=== PATIENT | female | born 1995 | race Two or more races ===

== ENCOUNTER 2017-01-15 10:56 | Emergency (ER) | payer OTHER ==
[2017-01-15 11:17] VITALS: BP 104/51; PULSE 71; TEMP 98.1; BMI 26.1
[2017-01-15 12:04] LABS: URINE APPEARANCE CLOUDY; URINE BILIRUBIN NEGATIVE (NEGATIVE); URINE COLOR YELLOW; URINE GLUCOSE (UA) NEGATIVE (NEGATIVE); URINE KETONE NEGATIVE (NEGATIVE); URINE NITRITE NEGATIVE (NEGATIVE); URINE UROBILINOGEN NEGATIVE E.U./dl (0.2-1.0)
[2017-01-15 12:13] LABS: URINE BLOOD 1+ (NEGATIVE); URINE LEUK ESTERASE 3+ (NEGATIVE); URINE PROTEIN 1+ (NEGATIVE)
--- NOTE | 2017-01-15 12:13 | PDOC ---
History of Present Illness - General Chief Complaint: Urinary Problem Stated Complaint: ABD PAIN Time Seen by Provider: 01/15/17 12:12 - History of Present Illness Initial Comments: 01/15/17 18:40 not seen by Patt ESQUIVEL Past History - Past Medical History Allergies/Adverse Reactions: Allergies Allergy/AdvReac Type Severity Reaction Status Date / Time No Known Allergies Allergy Verified 01/15/17 11:17 Home Medications: Ambulatory Orders Nitrofurantoin Macrocrystal [Macrodantin -] 100 mg PO BID #14 capsule 01/15/17 Phenazopyridine HCl [Pyridium -] 200 mg PO PC #10 tablet 01/15/17 Suicide Attempt (Hx): No Other medical history: PT DENIES MEDICAL HX - Immunization History Immunization Up to Date: Yes - Psycho/Social/Smoking Cessation Hx Anxiety: No Suicidal Ideation: No Smoking History: Never smoked Hx Alcohol Use: No Drug/Substance Use Hx: No *Physical Exam - Vital Signs Last Vital Signs Temp Pulse Resp BP Pulse Ox 98.1 F 71 18 104/51 95 01/15/17 11:15 01/15/17 11:15 01/15/17 11:15 01/15/17 11:15 01/15/17 11:15 *DC/Admit/Observation/Transfer Diagnosis at time of Disposition: UTI (urinary tract infection) - Discharge Dispostion Disposition: HOME Condition at time of disposition: Stable - Prescriptions Prescriptions: Nitrofurantoin Macrocrystal [Macrodantin -] 100 mg PO BID #14 capsule Phenazopyridine HCl [Pyridium -] 200 mg PO PC #10 tablet - Referrals Referrals: Shyla Davidson [Primary Care Provider] - - Patient Instructions Printed Discharge Instructions: DI for Urinary Tract Infection (UTI) Additional Instructions: Rest, drink lots of fluids: Teas, water, soups Avoid contact with others until fevers and symptoms resolved Lots of handwashing and good hygiene Continue [id number] medications for symptomatic relief Tylenol or Motrin for fever and pain Continue all of antibiotics until completed Followup with private physician in one week for repeat urinalysis/reevaluation Return to emergency department for worsened symptoms, fevers, dehydration Macrobid 100 mg twice a day for 7 days May use Pyridium for pain after each painful urination, up to 4 times a day, understanding will turn urine orange - Post Discharge Activity Work/School Note: Back to Work
[2017-01-15 12:19] LABS: URINE MUCUS RARE; URINE RBC 21 /hpf (0-3); URINE WBC 1393 /hpf (3-5)
[2017-01-15] MEDS ORDERED: NITROFURANTOIN MACROCRYSTAL 50 MG CAPSULE (FP) PO SCH (12:30)
[2017-01-15] MEDS ORDERED: NITROFURANTOIN MACROCRYSTAL 50 MG CAPSULE (FP) ONE (12:32)
--- NOTE | 2017-01-15 12:36 | PDOC ---
History of Present Illness - General Chief Complaint: Urinary Problem Stated Complaint: ABD PAIN Time Seen by Provider: 01/15/17 12:12 History Source: Patient Exam Limitations: No Limitations - History of Present Illness Travel History: No Initial Comments: 01/15/17 12:31 Patient is here with complaints of pain, burning, and some scant bleeding this morning with her urine. Has had a urinary tract infection the past and states feels this is same. Uncertain of status. No fever, no bowel changes 01/15/17 12:32 Timing/Duration: reports: getting worse Quality: reports: mild, moderate, sharpness Abdominal Pain Onset Location: reports: suprapubic Pain Radiation: reports: no radiation Past History - Travel Traveled outside of the country in the last 30 days: No Close contact w/someone who was outside of country & ill: No - Past Medical History Allergies/Adverse Reactions: Allergies Allergy/AdvReac Type Severity Reaction Status Date / Time No Known Allergies Allergy Verified 01/15/17 11:17 Home Medications: Ambulatory Orders Nitrofurantoin Macrocrystal [Macrodantin -] 100 mg PO BID #14 capsule 01/15/17 Phenazopyridine HCl [Pyridium -] 200 mg PO PC #10 tablet 01/15/17 Suicide Attempt (Hx): No Other medical history: PT DENIES MEDICAL HX - Immunization History Immunization Up to Date: Yes - Psycho/Social/Smoking Cessation Hx Anxiety: No Suicidal Ideation: No Smoking History: Never smoked Hx Alcohol Use: No Drug/Substance Use Hx: No Review of Systems - Review of Systems Able to Perform ROS?: Yes Is the patient limited Guatemalan proficient: Yes Constitutional: Yes: Symptoms Reported, See HPI, Malaise. No: Fever HEENTM: Yes: See HPI. No: Symptoms Reported Musculoskeletal: Yes: Symptoms Reported Integumentary: Yes: Symptoms Reported All Other Systems: Reviewed and Negative *Physical Exam - Vital Signs Last Vital Signs Temp Pulse Resp BP Pulse Ox 98.1 F 71 18 104/51 95 01/15/17 11:15 01/15/17 11:15 01/15/17 11:15 01/15/17 11:15 01/15/17 11:15 - Physical Exam General Appearance: Yes: Nourished, Appropriately Dressed. No: Apparent Distress HEENT: positive: LISA, TMs Normal, Pharynx Normal Neck: positive: Supple. negative: Lymphadenopathy (R), Lymphadenopathy (L) Respiratory/Chest: positive: Normal Breath Sounds Gastrointestinal/Abdominal: positive: Tender (suprapubic), Soft. negative: Normal Bowel Sounds Extremity: positive: Normal Capillary Refill, Normal Inspection, Normal Range of Motion Integumentary: positive: Normal Color, Dry, Warm Neurologic: positive: windows server architect II-XII NML intact, Fully Oriented, Alert, Normal Mood/ Affect, Normal Response, Motor Strength 02/13 ED Treatment Course - ADDITIONAL ORDERS Additional order review: Laboratory Results 01/15/17 11:55 Urine Color Yellow Urine Appearance Cloudy Urine pH 5.0 Ur Specific [place] 1.019 Urine Protein 1+ H Urine Glucose (UA) Negative Urine Ketones Negative Urine Blood 1+ H Urine Nitrite Negative Urine Bilirubin Negative Urine Urobilinogen Negative Ur Leukocyte Esterase 3+ H D Urine RBC 21 Urine WBC 1393 Ur Epithelial Cells Rare Urine Mucus Rare Urine HCG, Qual Negative Progress Note - Progress Note Progress Note: Urinary tract infection, will treat with Macrobid and pyridium *DC/Admit/Observation/Transfer Diagnosis at time of Disposition: UTI (urinary tract infection) Qualifiers: Urinary tract infection type: acute cystitis Hematuria presence: with hematuria Qualified Code(s): N30.01 - Acute cystitis with hematuria - Discharge Dispostion Disposition: HOME Condition at time of disposition: Stable Admit: No - Prescriptions Prescriptions: Nitrofurantoin Macrocrystal [Macrodantin -] 100 mg PO BID #14 capsule Phenazopyridine HCl [Pyridium -] 200 mg PO PC #10 tablet - Referrals Referrals: Shyla Davidson [Primary Care Provider] - - Patient Instructions Printed Discharge Instructions: DI for Urinary Tract Infection (UTI) Additional Instructions: Rest, drink lots of fluids: Teas, water, soups Avoid contact with others until fevers and symptoms resolved Lots of handwashing and good hygiene Continue [id number] medications for symptomatic relief Tylenol or Motrin for fever and pain Continue all of antibiotics until completed Followup with private physician in one week for repeat urinalysis/reevaluation Return to emergency department for worsened symptoms, fevers, dehydration Macrobid 100 mg twice a day for 7 days May use Pyridium for pain after each painful urination, up to 4 times a day, understanding will turn urine orange - Post Discharge Activity Work/School Note: Back to Work
--- NOTE | 2017-01-15 12:47 | PDOC ---
History of Present Illness - General Chief Complaint: Urinary Problem Stated Complaint: ABD PAIN Time Seen by Provider: 01/15/17 12:12 History Source: Patient Exam Limitations: No Limitations - History of Present Illness Travel History: Yes Initial Comments: 01/15/17 12:30 co pain and dysuria x 2 days. No fevers/ no bowel changes. Timing/Duration: reports: constant Abdominal Pain Onset Location: reports: suprapubic Pain Radiation: reports: no radiation Activities at Onset: reports: none Past History - Travel Traveled outside of the country in the last 30 days: No Close contact w/someone who was outside of country & ill: No - Past Medical History Allergies/Adverse Reactions: Allergies Allergy/AdvReac Type Severity Reaction Status Date / Time No Known Allergies Allergy Verified 01/15/17 11:17 Home Medications: Ambulatory Orders Nitrofurantoin Macrocrystal [Macrodantin -] 100 mg PO BID #14 capsule 01/15/17 Phenazopyridine HCl [Pyridium -] 200 mg PO PC #10 tablet 01/15/17 Suicide Attempt (Hx): No Other medical history: PT DENIES MEDICAL HX - Immunization History Immunization Up to Date: Yes - Psycho/Social/Smoking Cessation Hx Anxiety: No Suicidal Ideation: No Smoking History: Never smoked Hx Alcohol Use: No Drug/Substance Use Hx: No Review of Systems - Review of Systems Able to Perform ROS?: Yes Is the patient limited Belarusian proficient: Yes Constitutional: Yes: Symptoms Reported, See HPI, Malaise. No: Fever HEENTM: Yes: See HPI. No: Symptoms Reported Musculoskeletal: No: Symptoms Reported All Other Systems: Reviewed and Negative *Physical Exam - Vital Signs Last Vital Signs Temp Pulse Resp BP Pulse Ox 98.1 F 71 18 104/51 95 01/15/17 11:15 01/15/17 11:15 01/15/17 11:15 01/15/17 11:15 01/15/17 11:15 - Physical Exam General Appearance: Yes: Nourished, Appropriately Dressed, Apparent Distress, Mild Distress HEENT: positive: LISA, TMs Normal, Pharynx Normal Neck: positive: Supple. negative: Lymphadenopathy (R), Lymphadenopathy (L) Respiratory/Chest: positive: Lungs Clear Gastrointestinal/Abdominal: positive: Soft, Tenderness Musculoskeletal: negative: CVA Tenderness Integumentary: positive: Normal Color Neurologic: positive: lithoplate maker II-XII NML intact, Fully Oriented, Alert, Normal Mood/ Affect, Normal Response, Motor Strength / ED Treatment Course - ADDITIONAL ORDERS Additional order review: Laboratory Results 01/15/17 11:55 Urine Color Yellow Urine Appearance Cloudy Urine pH 5.0 Ur Specific [place] 1.019 Urine Protein 1+ H Urine Glucose (UA) Negative Urine Ketones Negative Urine Blood 1+ H Urine Nitrite Negative Urine Bilirubin Negative Urine Urobilinogen Negative Ur Leukocyte Esterase 3+ H D Urine RBC 21 Urine WBC 1393 Ur Epithelial Cells Rare Urine Mucus Rare Urine HCG, Qual Negative Progress Note - Progress Note Progress Note: Urinary tract infection, will treat with Pyridium and Macrobid *DC/Admit/Observation/Transfer Diagnosis at time of Disposition: UTI (urinary tract infection) Qualifiers: Urinary tract infection type: acute cystitis Hematuria presence: with hematuria Qualified Code(s): N30.01 - Acute cystitis with hematuria - Discharge Dispostion Disposition: HOME Condition at time of disposition: Stable - Prescriptions Prescriptions: Nitrofurantoin Macrocrystal [Macrodantin -] 100 mg PO BID #14 capsule Phenazopyridine HCl [Pyridium -] 200 mg PO PC #10 tablet - Referrals Referrals: Shyla Davidson [Primary Care Provider] - - Patient Instructions Printed Discharge Instructions: DI for Urinary Tract Infection (UTI) Additional Instructions: Rest, drink lots of fluids: Teas, water, soups Avoid contact with others until fevers and symptoms resolved Lots of handwashing and good hygiene Continue [id number]-[id number]-[id number] medications for symptomatic relief Tylenol or Motrin for fever and pain Continue all of antibiotics until completed Followup with private physician in one week for repeat urinalysis/reevaluation Return to emergency department for worsened symptoms, fevers, dehydration Macrobid 100 mg twice a day for 7 days May use Pyridium for pain after each painful urination, up to 4 times a day, understanding will turn urine orange - Post Discharge Activity Work/School Note: Back to Work
== END 2017-01-15 12:41 | disposition home or self-care (01) ==
LOC: JERFT 10:56 → JER 10:56 → JERFT 12:41
DX: N30.01 Acute cystitis with hematuria (principal)
CPT/HCPCS: 36415; 81003; 81015; 84703; 87086; 87186; 87491; 87591; 99281-25

== ENCOUNTER 2017-06-12 18:02 | Emergency (ER) | payer OTHER ==
[2017-06-12 18:06] VITALS: BP 135/71; PULSE 65; TEMP 98.1; BMI 26.1
--- NOTE | 2017-06-12 18:17 | PDOC ---
History of Present Illness - General Chief Complaint: Urinary Problem Stated Complaint: Wants to R/O UTI Time Seen by Provider: 06/12/17 18:15 Past History - Past Medical History Allergies/Adverse Reactions: Allergies Allergy/AdvReac Type Severity Reaction Status Date / Time No Known Allergies Allergy Verified 06/12/17 18:06 Home Medications: Ambulatory Orders Sulfamethoxazole/Trimethoprim [Bactrim Ds -] 1 tab PO BID #14 tablet 06/12/17 Suicide Attempt (Hx): No Other medical history: denies - Immunization History Immunization Up to Date: Yes - Psycho/Social/Smoking Cessation Hx Anxiety: No Suicidal Ideation: No Smoking History: Never smoked Information on smoking cessation initiated: No Hx Alcohol Use: No Drug/Substance Use Hx: No Substance Use Type: None *Physical Exam - Vital Signs Last Vital Signs Temp Pulse Resp BP Pulse Ox 98.1 F 65 17 135/71 100 06/12/17 18:04 06/12/17 18:04 06/12/17 18:04 06/12/17 18:04 06/12/17 18:04 *DC/Admit/Observation/Transfer Diagnosis at time of Disposition: UTI (urinary tract infection) Qualifiers: Urinary tract infection type: acute cystitis Hematuria presence: with hematuria Qualified Code(s): N30.01 - Acute cystitis with hematuria - Discharge Dispostion Disposition: HOME Condition at time of disposition: Good Admit: No - Prescriptions Prescriptions: Sulfamethoxazole/Trimethoprim [Bactrim Ds -] 1 tab PO BID #14 tablet - Referrals Referrals: Shyla Davidson [Primary Care Provider] - Ksenia Segundo MD [Staff Physician] - - Patient Instructions Printed Discharge Instructions: DI for Urinary Tract Infection (UTI) Additional Instructions: You have a urinary tract infection. You were prescribed antibiotics. Take as prescribed and finish the antibiotics even if you feel better. Drink plenty of fluids. You may take ibuprofen as needed for pain not to exceed 3,000mg a day. Follow up with your primary care doctor within the week. Return to the ED if you have worsening fevers, chills, nausea, vomiting, back pain, or any changes in your symptoms
[2017-06-12 18:33] LABS: URINE APPEARANCE CLEAR; URINE BILIRUBIN NEGATIVE (NEGATIVE); URINE BLOOD 3+ (NEGATIVE); URINE COLOR LT. YELLOW; URINE GLUCOSE (UA) NEGATIVE (NEGATIVE); URINE KETONE TRACE (NEGATIVE); URINE NITRITE NEGATIVE (NEGATIVE); URINE PROTEIN TRACE (NEGATIVE); URINE UROBILINOGEN 0.2 mg/dL (0.2-1.0)
[2017-06-12 18:35] LABS: URINE LEUK ESTERASE 1+ (NEGATIVE)
[2017-06-12 18:40] LABS: URINE BACTERIA RARE /hpf (NONE SEEN); URINE HYALINE CAST 3 /lpf; URINE MUCUS RARE; URINE RBC 84 /hpf (0-3); URINE WBC 134 /hpf (3-5)
[2017-06-12] MEDS ORDERED: IBUPROFEN 600 MG TABLET (FP) PO ONE ×2 (18:55→19:01)
== END 2017-06-12 19:04 | disposition home or self-care (01) ==
LOC: JERFT 18:02
DX: N30.01 Acute cystitis with hematuria (principal)
CPT/HCPCS: 81003; 81015; 84703; 87086; 99281-25

== ENCOUNTER 2018-12-01 22:01 | Emergency (ER) | payer OTHER ==
[2018-12-01 22:20] VITALS: BMI 25.7
--- NOTE | 2018-12-01 22:44 | PDOC ---
History of Present Illness - General Chief Complaint: Vomiting Blood Stated Complaint: VOMITING BLOOD Time Seen by Provider: 12/01/18 22:24 History Source: Patient Exam Limitations: No Limitations - History of Present Illness Initial Comments: 23 yo F w a pmh of scoliosis presents to the ER stating she experienced 4 episodes of bloody vomitus after she was drinking a significant amount of vodka. She reports that she was drinking earlier today, then felt nauseous and started vomiting blood. She also admits to epigastric and LUQ abdominal pain which radiates to her back. She says that she drinks pretty frequently but she has never vomited blood in the past. She states that after she vomited she looked into the toilet and it was full of blood. She denies recent fevers, chills, infections, headache, blurry vision, neck pain , chest pain, SOB, difficulty breathing, dysuria, frequency, urgency, or vertigo. LMP: 1 week ago PCP: Ruba Merlos PSH: None reported Allergies: NKA, NKDA Social Hx: Drinks 3 times a week, smokes 3 times a week ~3 cig/week, Denies IVDU or other substances. Past History - Past Medical History Allergies/Adverse Reactions: Allergies Allergy/AdvReac Type Severity Reaction Status Date / Time No Known Allergies Allergy Verified 12/01/18 22:22 Home Medications: Ambulatory Orders NK [No Known Home Medication] 12/01/18 CVA: No COPD: No CHF: No - Surgical History Appendectomy: No Cardiac Surgery: No Gastric Stapling: No GI Surgery: No Lung Surgery: No - Immunization History Immunization Up to Date: Yes - Suicide/Smoking/Psychosocial Hx Smoking History: Current some day smoker Have you smoked in the past 12 months: Yes Number of Cigarettes Smoked Daily: 2 Information on smoking cessation initiated: Yes Hx Alcohol Use: Yes (Three times/week) Drug/Substance Use Hx: No Substance Use Type: None Review of Systems - Review of Systems Able to Perform ROS?: Yes Comments:: CONSTITUTIONAL: Absent: fever, no chills, no fatigue EYES: Absent: visual changes ENT: Absent: ear pain, no sore throat CARDIOVASCULAR: Absent: chest pain, no palpitations RESPIRATORY: Absent: cough, no SOB GI: Present: Abdominal pain, nausea, vomiting Absent: no constipation, no diarrhea GENITOURINARY: Absent: dysuria, no frequency, no hematuria MUSKULOSKELETAL: Present: Back pain Absent: no arthralgia, no myalgia SKIN: Absent: rash NEURO: Absent: headache *Physical Exam - Vital Signs Last Vital Signs Temp Pulse Resp BP Pulse Ox 98.6 F 108 H 20 127/77 98 12/01/18 22:18 12/01/18 22:18 12/01/18 22:18 12/01/18 22:18 12/01/18 22:18 - Physical Exam Comments: GENERAL: Well-appearing, well-nourished. No apparent distress. HEENT: Normocephalic, atraumatic. PERRL, EOM intact. CARDIOVASCULAR: Tachycardic rate. Normal S1, S2. Regular rhythm. PULMONARY: No evidence of respiratory distress. Lungs clear to auscultation bilaterally. No wheezing, rales or rhonchi. ABDOMEN: There is epigastric TTP. The abdomen is still soft, non-distended, and there are normal BS. EXTREMITIES: Normal ROM in all four extremities. No gross deformities. SKIN: Warm, dry. No rash NEUROLOGICAL: No focal neurological deficits. Moderate Sedation - Procedure Monitoring Vital Signs: Procedure Monitoring Vital Signs Temperature 98.6 F 12/01/18 22:18 Pulse Rate 108 H 12/01/18 22:18 Respiratory Rate 20 12/01/18 22:18 Blood Pressure 127/77 12/01/18 22:18 O2 Sat by Pulse Oximetry (%) 98 12/01/18 22:18 ED Treatment Course - LABORATORY CBC & Chemistry Diagram: 12/01/18 22:43 12/01/18 22:43 Medical Decision Making - Medical Decision Making 23 yo F w a pmh of scoliosis presents to the ER stating she experienced 4 episodes of bloody vomitus after she was drinking a significant amount of vodka. She reports that she was drinking earlier today, then felt nauseous and started vomiting blood. She also admits to epigastric and LUQ abdominal pain which radiates to her back. She says that she drinks pretty frequently but she has never vomited blood in the past. She states that after she vomited she looked into the toilet and it was full of blood. VS: Tachycardic DDx IBNLT: Talia Escobar vc boerhave, pneumomediastinum, pancreatitis, food poisoning, gastroenteritis, cholecystitis, anemia, alcohol related side effects Plan: Labs, Urine, CXR, EKG, Tox, Hcg, IV hydration, zofran, pepcid, re-assess. Labs unremarkable. Lipase WNL, HCG neg. CXR clean Patient feels much better after zofran and pepcid and is no longer experiencing abdominal pain. - She likely experienced an episode of gastritis secondary to alcohol abuse Will DC with PCP fu and return precautions. *DC/Admit/Observation/Transfer Diagnosis at time of Disposition: Abdominal pain, Alcohol abuse - Discharge Dispostion Disposition: HOME Condition at time of disposition: Improved Decision to Admit order: No - Referrals Referrals: Ruba Merlos MD [Primary Care Provider] - Francisco J Long MD [Staff Physician] - - Patient Instructions Printed Discharge Instructions: DI for Alcohol Abuse, DI for Abdominal Pain- Adult Additional Instructions: You came into the ER with abdominal pain and vomiting. We gave you some meds and IV hydration and you felt much better. It is important to call a stomach doctor - court deputy and schedule an appointment in the next 3 to 5 days. We are attaching a number for you to call. Come back to the ER if your pain worsens, you vomit blood, fell lightheaded, have extreme pain, or have any other new or worsening concerns. Thank you for coming to the [facility] ER. We hope you feel better soon! Print Language: SENEGALESE - Post Discharge Activity
[2018-12-01] MEDS ORDERED: SODIUM CHLORIDE 0.9% 500 ML INFUS.BAG IV ONE (22:46)
[2018-12-01] MEDS ORDERED: ONDANSETRON 4 MG/2 ML VIAL IVPUSH ONE (22:46)
[2018-12-01] MEDS ORDERED: FAMOTIDINE 20 MG/50 ML IVPB 20 MG/50 ML MG IVPB ONE ×2 (22:46→23:22)
[2018-12-01 22:58] LABS: BASO % 0.6 % (0-2.0); EOS % 0.9 % (0-4.5); HEMOGLOBIN 15.5 GM/dL (10.7-15.3); LYMPH % 41.9 % (8-40); MCH 32.4 pg (25.7-33.7); MCHC 35.3 g/dl (32.0-36.0); MEAN CELL VOLUME 91.8 fl (80-96); MEAN PLT VOLUME 8.8 fl (7.5-11.1); MONO % 4.6 % (3.8-10.2); PLATELET COUNT 323 K/MM3 (134-434); RDW 13.3 % (11.6-15.6); WHITE BLOOD COUNT 6.5 K/mm3 (4.0-10.0)
[2018-12-01 23:13] LABS: INR 0.99 (0.83-1.09); PROTHROMBIN TIME (PATIENT) 11.7 SEC (9.7-13.0)
[2018-12-01 23:16] LABS: ACTIVATED PTT 34.5 SECONDS (25.2-36.5)
[2018-12-01 23:19] LABS: LIPASE 262 U/L (73-393)
[2018-12-01] MEDS ORDERED: ONDANSETRON 4 MG/2 ML VIAL ONE (23:21)
[2018-12-01 23:40] LABS: ALBUMIN 4.6 g/dl (3.4-5.0); ALK PHOS 107 U/L (45-117); ANION GAP 7 MMOL/L (8-16); BLOOD UREA NITROGEN 12 mg/dL (7-18); CALCIUM 8.9 mg/dL (8.5-10.1); CHLORIDE 110 mmol/L (98-107); CO2 25 mmol/L (21-32); CREATININE 0.8 mg/dL (0.55-1.3); SGOT/AST 15 U/L (15-37); SODIUM 142 mmol/L (136-145); TOT PROT 8.7 g/dl (6.4-8.2)
[2018-12-01 23:41] LABS: BILIRUBIN,TOTAL 0.2 mg/dL (0.2-1); GLUCOSE,RANDOM 93 mg/dL (74-106); SGPT/ALT 32 U/L (13-61)
[2018-12-02 00:32] LABS: URINE APPEARANCE CLEAR; URINE BILIRUBIN NEGATIVE (<2.0 mg/dL); URINE COLOR STRAW; URINE GLUCOSE (UA) NEGATIVE (NEGATIVE); URINE KETONE NEGATIVE (NEGATIVE); URINE LEUK ESTERASE TRACE (NEGATIVE); URINE NITRITE NEGATIVE (NEGATIVE); URINE PROTEIN NEGATIVE (NEGATIVE); URINE UROBILINOGEN NEGATIVE mg/dL (0.2-1.0)
[2018-12-02 00:33] LABS: HCG,QUALITATIVE URINE Negative
[2018-12-02 00:46] LABS: EPI CELLS RARE /HPF (FEW); URINE MUCUS RARE
--- NOTE | 2018-12-02 00:51 | PDOC ---
Attending Attestation - Resident Resident Name: Isaac Lau - ED Attending Attestation I have performed the following: I have examined & evaluated the patient, The case was reviewed & discussed with the resident, I agree w/resident's findings & plan, Exceptions are as noted - HPI HPI: 12/02/18 00:46 23 yo F with no significant pmhx here with c/o n/v and hemetemesis. pt was drinking alcohol today. states she drinks 3 days a / week. tongiht have several episodes of blood tinged vomiting. no f/c does c/o epigastric abd pain. lmp was one week ago. not . denies other co ingestion. no h/o known pud. not taking any medication. no f/c not lightheaded. - Physicial Exam PE: 12/02/18 00:48 awake alert lungs clear bilaterally heart rrr no mrg abd soft nt nd. ext wwp. skin warm and dry. alert oriented x 3. - Medical Decision Making 12/02/18 00:49 differential pud, etoh gastritis efrain young, devorah. plan xray antiemetics, pepcid, ua ucg labs iv hydration. pt labs unremarkable feeling better. no emesis since medication. will dc home gi followup. cxr normal. no free air.
[2018-12-02 01:33] VITALS: BP 119/71; PULSE 82; TEMP 98.2
--- NOTE | 2018-12-02 11:54 | EKG ---
Test Reason : Blood Pressure : / mmHG Vent. Rate : 082 BPM Atrial Rate : 082 BPM P-R Int : 210 ms QRS Dur : 082 ms QT Int : 372 ms P-R-T Axes : 040 036 014 degrees QTc Int : 434 ms POOR DATA QUALITY, INTERPRETATION MAY BE ADVERSELY AFFECTED SINUS RHYTHM WITH 1ST DEGREE A-V BLOCK OTHERWISE NORMAL ECG NO PREVIOUS ECGS AVAILABLE Confirmed by ANABELLA GOLDSTEIN, EMELYN ([id number]) on 12/02/2018 11:53:37 AM Referred By: Confirmed By:EMELYN KYLE MD
== END 2018-12-02 01:30 | disposition home or self-care (01) ==
LOC: JER 22:01
PROC: 3E033GC Introduction of Other Therapeutic Substance into Peripheral Vein, Percutaneous Approach (ICD-10-PCS; principal; 2018-12-01)
PROC: 3E033GC Introduction of Other Therapeutic Substance into Peripheral Vein, Percutaneous Approach (ICD-10-PCS; 2018-12-01)
DX: R10.10 Upper abdominal pain, unspecified (principal); F10.10 Alcohol abuse, uncomplicated
CPT/HCPCS: 36415; 71046-TC-FY; 80053; 80307; 81003; 81015; 83690; 84703; 85025; 85044; 85610; 85730; 86850; 86900; 86901; 93005; 93010; 99282-25

== ENCOUNTER 2019-05-15 18:06 | Emergency (ER) | payer OTHER ==
[2019-05-15 18:11] VITALS: BP 114/68; PULSE 68; TEMP 98.4; BMI 29.6
--- NOTE | 2019-05-15 19:12 | PDOC ---
History of Present Illness - General Chief Complaint: Pain Stated Complaint: ABDOMINAL PAIN Time Seen by Provider: 05/15/19 19:00 History Source: Patient Exam Limitations: No Limitations - History of Present Illness Initial Comments: 05/15/19 19:03 Patient is a 23-year-old female with no past medical history c/o burning on urination since 4 days. Patient states pain is in the lower abd burning /10 with urination and radiates to the back. Took motrin prior to ED and now has no pain. Denies nausea, vomiting, fever, chills, back pain, vaginal discharge. Sexually active with one partner without condoms. LMP 05/08/19 has IUD. PMD: [facility] PMHX: as above PSOCHX: occ cig, occ etoh, neg drug ALL: NKDA GENERAL/CONSTITUTIONAL: No fever or chills. No weakness. No weight change. HEAD, EYES, EARS, NOSE AND THROAT: No change in vision. No ear pain or discharge. No sore throat. CARDIOVASCULAR: No chest pain or shortness of breath. RESPIRATORY: No cough, wheezing, or hemoptysis. GASTROINTESTINAL: No nausea, vomiting, diarrhea or constipation. No rectal bleeding. GENITOURINARY: (+)dysuria, frequency, or change in urination. MUSCULOSKELETAL: No joint or muscle swelling or pain. No neck or back pain. SKIN AND BREASTS: No rash or easy bruising. NEUROLOGIC: No headache, vertigo, loss of consciousness, or loss of sensation. PSYCHIATRIC: No depression or anxiety. ENDOCRINE: No increased thirst. No abnormal weight change. HEMATOLOGIC/LYMPHATIC: No anemia, easy bleeding, or history of blood clots. ALLERGIC/IMMUNOLOGIC: No hives or skin allergy. No latex allergy. GENERAL: The patient is awake, alert, and fully oriented, in mild distress. HEAD: Normal with no signs of trauma. EYES: Pupils equal, round and reactive to light, extraocular movements intact, sclera anicteric, conjunctiva clear. ENT: Ears normal, nares patent, oropharynx clear without exudates. Moist mucous membranes. NECK: Normal range of motion, supple without lymphadenopathy, JVD, or masses. LUNGS: Breath sounds equal, clear to auscultation bilaterally. No wheezes, and no crackles. HEART: Regular rate and rhythm, normal S1 and S2 without murmur, rub. ABDOMEN: Soft, (+) mild tenderness suprapubic, normoactive bowel sounds. No guarding, no rebound. No masses. EXTREMITIES: Normal range of motion, no edema. No clubbing or cyanosis. No cords, erythema, or tenderness. NEUROLOGICAL: Cranial nerves II through XII grossly intact. Normal speech, normal gait. PSYCH: Normal mood, normal affect. SKIN: Warm, Dry, normal turgor, no rashes or lesions noted. Past History - Past Medical History Allergies/Adverse Reactions: Allergies Allergy/AdvReac Type Severity Reaction Status Date / Time No Known Allergies Allergy Verified 05/15/19 18:10 Home Medications: Ambulatory Orders Cephalexin [Keflex] 500 mg PO BID #14 capsule 05/15/19 Phenazopyridine HCl [Pyridium] 100 mg PO TID #6 tablet 05/15/19 CVA: No COPD: No CHF: No - Surgical History Appendectomy: No Cardiac Surgery: No Gastric Stapling: No GI Surgery: No Lung Surgery: No - Immunization History Immunization Up to Date: Yes - Suicide/Smoking/Psychosocial Hx Smoking History: Never smoked Have you smoked in the past 12 months: Yes Number of Cigarettes Smoked Daily: 2 Hx Alcohol Use: Yes (Three times/week) Drug/Substance Use Hx: No Substance Use Type: None *Physical Exam - Vital Signs Last Vital Signs Temp Pulse Resp BP Pulse Ox 98.4 F 68 18 114/68 98 05/15/19 18:08 05/15/19 18:08 05/15/19 18:08 05/15/19 18:08 05/15/19 18:08 Medical Decision Making - Medical Decision Making 05/15/19 19:03 Patient is a 23-year-old female with no past medical history c/o burning on urination since 4 days. Patient states pain is in the lower abd burning 04/20 with urination and radiates to the back. Took motrin prior to ED and now has no pain. Denies nausea, vomiting, fever, chills, back pain, vaginal discharge. Sexually active with one partner without condoms. LMP 05/08/19 has IUD. Symptoms consistent with UTI UA, Urine culture, GC chlamydia. 05/15/19 20:37 Laboratory Tests 05/15/19 05/15/19 19:10 19:10 Urine Color Yellow Urine Appearance Clear Urine pH 5.5 Ur Specific Agar 1.004 L Urine Urobilinogen 0.2 Ur Leukocyte Esterase 1+ H Urine WBC (Auto) 37.5 Urine RBC (Auto) 1.8 U Epithel Cells (Auto) 7.4 Urine Bacteria (Auto) 42.0 Urine HCG, Qual Negative Keflex 500 mg by mouth given. pyridium 200mg po Urine culture pending, chlamydia pending I discussed the physical exam findings, ancillary test results and final diagnoses with the patient. I answered all of the patient's questions. The patient was satisfied with the care received and felt comfortable with the discharge plan and treatment plan. The Patient agrees to follow up with the primary care physician within 24-72 hours. *DC/Admit/Observation/Transfer Diagnosis at time of Disposition: UTI (urinary tract infection) Qualifiers: Urinary tract infection type: site unspecified Hematuria presence: without hematuria Qualified Code(s): N39.0 - Urinary tract infection, site not specified - Discharge Dispostion Disposition: HOME Condition at time of disposition: Stable - Prescriptions Prescriptions: Cephalexin [Keflex] 500 mg PO BID #14 capsule Phenazopyridine HCl [Pyridium] 100 mg PO TID #6 tablet - Referrals - Patient Instructions Printed Discharge Instructions: DI for Urinary Tract Infection (UTI) Additional Instructions: Your Discharge Instructions: You must call primary care physician within 24 hours to arrange follow-up. Return to the Emergency Department with any new, persistent or worsening symptoms, for fever, chills, SOB, dizziness or any other concerning changes that may occur. The antibiotics as prescribed. - Post Discharge Activity Forms/Work/School Notes: Back to Work
[2019-05-15 19:42] LABS: PH,URINE 5.5 (5.0-8.0); URINE APPEARANCE CLEAR; URINE BILIRUBIN NEGATIVE (NEGATIVE); URINE COLOR YELLOW; URINE GLUCOSE (UA) NEGATIVE (NEGATIVE); URINE KETONE NEGATIVE (NEGATIVE); URINE LEUK ESTERASE 1+ (NEGATIVE); URINE NITRITE NEGATIVE (NEGATIVE); URINE PROTEIN NEGATIVE (NEGATIVE); URINE UROBILINOGEN 0.2 mg/dL (0.2-1.0)
[2019-05-15 20:22] LABS: URINE RBC 1.8 /hpf (0-4); URINE WBC 37.5 /hpf (0-5)
[2019-05-15 20:23] LABS: EPI CELLS 7.4 /HPF (0-5/HPF)
[2019-05-15] MEDS ORDERED: CEPHALEXIN MONOHYDRATE 500 MG CAPSULE (UD) PO ONE (20:34)
[2019-05-15] MEDS ORDERED: PHENAZOPYRIDINE HCL 100 MG TABLET (FP) PO ONE (20:41)
[2019-05-15] MEDS ORDERED: PHENAZOPYRIDINE HCL 100 MG TABLET (FP) ONE (20:46)
[2019-05-15] MEDS ORDERED: CEPHALEXIN MONOHYDRATE 500 MG CAPSULE (UD) ONE (20:46)
== END 2019-05-15 20:51 | disposition home or self-care (01) ==
LOC: JER 18:06
DX: N39.0 Urinary tract infection, site not specified (principal)
CPT/HCPCS: 36415; 81003; 84703; 87086; 87491; 87591; 99281-25

== ENCOUNTER 2021-07-23 17:17 | Emergency (ER) | payer OTHER ==
[2021-07-23 17:55] VITALS: BP 137/75; PULSE 97; TEMP 98.1; BMI 29.6
[2021-07-23] MEDS ORDERED: IBUPROFEN 600 MG TABLET (FP) PO ONE ×2 (18:28→18:30)
[2021-07-23] MEDS ORDERED: PHENAZOPYRIDINE HCL 100 MG TABLET (FP) PO ONE (18:28)
[2021-07-23] MEDS ORDERED: PHENAZOPYRIDINE HCL 100 MG TABLET (FP) ONE (18:30)
[2021-07-23 18:55] LABS: EPI CELLS 32 /uL (0-25.1); HYALINE CASTS 2 /uL (0-3.1); URINE APPEARANCE TURBID; URINE BACTERIA 516 /uL (0-1359); URINE BILIRUBIN NEGATIVE (NEGATIVE); URINE COLOR YELLOW; URINE GLUCOSE (UA) NEGATIVE (NEGATIVE); URINE KETONE 1+ (NEGATIVE); URINE LEUK ESTERASE 3+ (NEGATIVE); URINE NITRITE NEGATIVE (NEGATIVE); URINE PROTEIN 2+ (NEGATIVE); URINE WBC 6509 /uL (0-25.8)
[2021-07-23] MEDS ORDERED: CEPHALEXIN MONOHYDRATE 500 MG CAPSULE (UD) PO ONE (19:01)
[2021-07-23] MEDS ORDERED: CEPHALEXIN MONOHYDRATE 500 MG CAPSULE (UD) ONE (19:02)
[2021-07-23 21:57] LABS: URINE RBC 528.8 /uL (0-23.9); YEAST NONE SEEN (NEGATIVE)
== END 2021-07-23 19:07 | disposition home or self-care (01) ==
LOC: JERFT 17:17 → JER 17:17 → JERFT 19:07
DX: N30.00 Acute cystitis without hematuria (principal)
CPT/HCPCS: 36415; 81003; 84703; 87077; 87086; 87491; 87591; 99284-25

== ENCOUNTER 2021-09-01 09:49 | Emergency (ER) | payer OTHER ==
[2021-09-01 10:04] VITALS: BP 120/75; PULSE 67; TEMP 97; BMI 29.4
[2021-09-01 10:46] LABS: EPI CELLS >36 /uL (0-25.1); HYALINE CASTS 2 /uL (0-3.1); URINE APPEARANCE CLOUDY; URINE BACTERIA 1101 /uL (0-1359); URINE BILIRUBIN NEGATIVE (NEGATIVE); URINE COLOR YELLOW; URINE GLUCOSE (UA) NEGATIVE (NEGATIVE); URINE KETONE TRACE (NEGATIVE); URINE LEUK ESTERASE 3+ (NEGATIVE); URINE NITRITE NEGATIVE (NEGATIVE); URINE PROTEIN 1+ (NEGATIVE); URINE RBC 115 /uL (0-23.9); URINE WBC 2040 /uL (0-25.8)
== END 2021-09-01 11:13 | disposition home or self-care (01) ==
LOC: JER 09:49 → JERFT 09:49
DX: O23.591 Infection of other part of genital tract in pregnancy, first trimester (principal); Z3A.01 Less than 8 weeks gestation of pregnancy
CPT/HCPCS: 36415; 81003; 84703; 87086; 87491; 87591; 99283-25

== ENCOUNTER 2022-05-10 08:00 | Inpatient (IN) | payer OTHER ==
[2022-05-10] MEDS ORDERED: AMPICILLIN SODIUM 2 GM VIAL ONE (09:05)
[2022-05-10 09:13] LABS: HEMOGLOBIN 11.8 GM/dL (10.7-15.3); MCH 30.8 pg (25.7-33.7); MCHC 34.6 g/dl (32.0-36.0); MEAN PLT VOLUME 9.8 fl (7.5-11.1); PLATELET COUNT 251 10^3/uL (134-434); RBC 3.82 M/mm3 (3.60-5.2); RDW 14.6 % (11.6-15.6); WHITE BLOOD COUNT 9.3 K/mm3 (4.0-10.0)
[2022-05-10 09:17] VITALS: BMI 33.3
[2022-05-10 09:18] LABS: INR 0.96 (0.83-1.09)
[2022-05-10 09:21] LABS: ACTIVATED PTT 27.8 SECONDS (25.2-36.5)
[2022-05-10 09:35] LABS: BLOOD UREA NITROGEN 8.1 mg/dL (7-18)
[2022-05-10 09:38] LABS: CREATININE 0.6 mg/dL (0.55-1.3)
[2022-05-10 11:00] LABS: ANISOCYTOSIS 1+; MACROCYTOSIS 0
[2022-05-10] MEDS ORDERED: FENTANYL/BUPIVACAINE/NS/PF - PCEA - 50 ML DISP.SYRIN EP ONE (11:02)
[2022-05-10] MEDS ORDERED: NALOXONE HCL 0.4 MG/ML VIAL IVPUSH PRN (11:10)
[2022-05-10] MEDS ORDERED: BUPIVACAINE HCL/PF 0.25% (2.5MG/ML) 10 ML VIAL ONE (11:13)
[2022-05-10] MEDS ORDERED: FENTANYL/BUPIVACAINE/NS/PF - PCEA - 50 ML DISP.SYRIN EP SCH (11:15)
[2022-05-10] MEDS ORDERED: OXYTOCIN 30 UNITS in 0.9% NS 30 UNIT/500 ML INFUS.BAG IVPB SCH (11:30)
[2022-05-10] MEDS ORDERED: OXYTOCIN 30 UNITS in 0.9% NS 30 UNIT/500 ML INFUS.BAG IVPB ONE (11:57)
[2022-05-10] MEDS ORDERED: AMPICILLIN SODIUM 1 GM VIAL ONE (13:26)
[2022-05-10] MEDS: AMPICILLIN - 1 GM in SODIUM CHLORIDE 100 ML IVPB SCH ×2 (13:30→15:56)
[2022-05-10] MEDS ORDERED: AMPICILLIN - 2 GM in SODIUM CHLORIDE 100 ML IVPB ONE (13:31)
[2022-05-10] MEDS ORDERED: OXYTOCIN 20 UNITS in 0.9% NS 20 UNIT/1,000 ML INFUS.BAG IV ONE (13:36)
[2022-05-10] MEDS ORDERED: LIDOCAINE HCL 1% PRESERVATIVE FREE - 30ML VIAL ONE ×2 (13:37→14:02)
[2022-05-10] MEDS ORDERED: METHYLERGONOVINE MALEATE 0.2 MG/1 ML AMP IM PRN (13:42)
[2022-05-10] MEDS ORDERED: WITCH HAZEL 50% (TUCKS) 40 PAD/JAR PAD TP PRN (13:42)
[2022-05-10] MEDS ORDERED: ACETAMINOPHEN 325 MG TABLET (FP) PO PRN (13:42)
[2022-05-10] MEDS ORDERED: BENZOCAINE 20% 57 GM BOTTLE TP PRN (13:42)
[2022-05-10] MEDS ORDERED: oxyCODONE HCL 5 MG TABLET PO PRN (13:42)
[2022-05-10] MEDS ORDERED: BENZOCAINE 28 GM HEMORRHOIDAL OINTMENT TP PRN (13:42)
[2022-05-10] MEDS ORDERED: BISACODYL 10 MG SUPP.RECT RC PRN (13:42)
[2022-05-10] MEDS ORDERED: OXYTOCIN 20 UNITS in 0.9% NS 20 UNIT/1,000 ML INFUS.BAG IV SCH (13:45)
[2022-05-10] MEDS ORDERED: ELECTROLYTE-148 SOLN 1,000 ML IV SCH (13:45)
[2022-05-10 14:54] LABS: CORD BASE EXCESS -2.8 mmol/L (0-2); CORD HCO3 25.1 mmHg (20-29); CORD PCO2 55.2 mmHg (30-78); CORD pH 7.275 (7.14-7.44)
[2022-05-10] MEDS ORDERED: oxyCODONE HCL 5 MG TABLET ONE (15:44)
[2022-05-10] MEDS ORDERED: METHYLERGONOVINE MALEATE 0.2 MG/1 ML AMP IM ONE (16:19)
[2022-05-10] MEDS ORDERED: METHYLERGONOVINE MALEATE 0.2 MG TABLET (FP) PO SCH (18:00)
[2022-05-10] MEDS: METHYLERGONOVINE MALEATE 0.2 MG TABLET (FP) PO SCH (18:49)
[2022-05-10] MEDS: IBUPROFEN 600 MG TABLET (FP) PO PRN (21:39)
[2022-05-11] MEDS: METHYLERGONOVINE MALEATE 0.2 MG TABLET (FP) PO SCH ×3 (00:03→12:16)
[2022-05-11 07:07] LABS: BASO % 0.4 % (0-2.0); EOS % 0.7 % (0-4.5); HEMATOCRIT 32.4 % (32.4-45.2); LYMPH % 24.9 % (8-40); MCH 30.4 pg (25.7-33.7); MCHC 33.8 g/dl (32.0-36.0); MEAN CELL VOLUME 89.8 fl (80-96); MEAN PLT VOLUME 10.2 fl (7.5-11.1); MONO % 5.7 % (3.8-10.2); NEUT % 68.3 % (42.8-82.8); PLATELET COUNT 226 10^3/uL (134-434); RBC 3.61 M/mm3 (3.60-5.2); RDW 14.8 % (11.6-15.6); WHITE BLOOD COUNT 10.5 K/mm3 (4.0-10.0)
[2022-05-11] MEDS: IBUPROFEN 600 MG TABLET (FP) PO PRN ×2 (08:30→20:47)
[2022-05-11 20:49] VITALS: RESP 18
[2022-05-11] MEDS ORDERED: SENNOSIDES/DOCUSATE COMBO (SENNA PLUS) TABLET (UD) PO PRN (22:00)
[2022-05-12] MEDS: IBUPROFEN 600 MG TABLET (FP) PO PRN (09:58)
[2022-05-12 11:45] VITALS: BP 99/64; PULSE 94; TEMP 98
== END 2022-05-12 14:50 | disposition home or self-care (01) | DRG 560 ==
LOC: JLDR 08:00 → J3W 17:41
PROVIDERS: ADMIT Internal Medicine; ATTEND Internal Medicine
PROC: 10E0XZZ Delivery of Products of Conception, External Approach (ICD-10-PCS; principal; 2022-05-10)
DX: O48.0 Post-term pregnancy (principal); Z3A.41 41 weeks gestation of pregnancy; Z37.0 Single live birth
CPT/HCPCS: 36415; 36600; 59025; 59409; 80048; 82803; 85025; 85610; 85730; 86780; 86850; 86900; 86901; C9803-CS; G0463-25; U0003; U0005

== ENCOUNTER 2023-01-26 15:34 | Emergency (ER) | payer OTHER ==
[2023-01-26 15:52] VITALS: BP 108/66; PULSE 74; RESP 20; TEMP 98; BMI 25.0
[2023-01-26] MEDS ORDERED: ACETAMINOPHEN 500 MG TABLET (FP) PO ONE (16:27)
[2023-01-26] MEDS ORDERED: ACETAMINOPHEN 325 MG TABLET (FP) ONE (16:33)
[2023-01-26 16:40] LABS: EPI CELLS 28 /uL (0-25.1); HYALINE CASTS 1 /uL (0-3.1); URINE APPEARANCE CLEAR; URINE BACTERIA 284 /uL (0-1359); URINE BILIRUBIN NEGATIVE (NEGATIVE); URINE COLOR YELLOW; URINE GLUCOSE (UA) NEGATIVE (NEGATIVE); URINE KETONE TRACE (NEGATIVE); URINE LEUK ESTERASE 1+ (NEGATIVE); URINE NITRITE NEGATIVE (NEGATIVE); URINE PROTEIN NEGATIVE (NEGATIVE); URINE RBC 14 /uL (0-23.9); URINE WBC 76 /uL (0-25.8)
[2023-01-26] MEDS ORDERED: NITROFURANTOIN MACROCRYSTAL 50 MG CAPSULE (FP) PO ONE (17:00)
[2023-01-26] MEDS ORDERED: NITROFURANTOIN MACROCRYSTAL 50 MG CAPSULE (FP) ONE (17:06)
[2023-01-26 17:28] LABS: HCG,QUALITATIVE URINE Negative
== END 2023-01-26 19:32 | disposition home or self-care (01) ==
LOC: JER 15:34 → JERBED 18:02 → UNDOADMOB 18:02 → JER 19:32
DX: N30.00 Acute cystitis without hematuria (principal); R10.30 Lower abdominal pain, unspecified; R39.15 Urgency of urination
CPT/HCPCS: 76830-TC; 81003; 84703; 87086; 99284-25

== ENCOUNTER 2023-08-30 11:17 | Emergency (ER) | payer OTHER ==
[2023-08-30 11:28] VITALS: BMI 26.6
[2023-08-30] MEDS ORDERED: ACETAMINOPHEN 500 MG TABLET (FP) PO ONE (12:29)
[2023-08-30] MEDS ORDERED: ACETAMINOPHEN 500 MG TABLET (FP) ONE (12:34)
[2023-08-30] MEDS ORDERED: LIDOCAINE 4% PATCH TP ONE ×2 (12:43→13:00)
[2023-08-30 13:56] VITALS: PULSE 99; RESP 16; TEMP 97.4
[2023-08-30 13:57] VITALS: BP 119/72
== END 2023-08-30 13:40 | disposition home or self-care (01) ==
LOC: JER 11:17 → JERFT 11:17
DX: M79.10 Myalgia, unspecified site (principal); M54.6 Pain in thoracic spine; M54.2 Cervicalgia; Y04.8XXA Assault by other bodily force, initial encounter
CPT/HCPCS: 71046-TC-FY; 72050-TC-FY; 84703; 99284-25